=== PATIENT | female | born 1975 | race Asian ===

== ENCOUNTER 2024-10-27 13:28 | Emergency (ER) | payer SELFPAY ==
--- NOTE | ~2024-10-27 | XR_ITS ---
EXAM: XR abdomen/kub 1V DATE: 10/27/2024 14:21 HISTORY: pain, urinary frequency, bloating . COMPARISON: None available. FINDINGS: Lung bases are excluded from the [id number]. Normal bowel gas pattern. No organomegaly. No abnormal abdominal calcification. Mild lumbar scoliosis. Mild degenerative change in the bilatera l hips. IMPRESSION: No radiographic evidence of obstruction or ileus. Reviewed, dictated and finalized at location K.
[2024-10-27 13:48] VITALS: BP 143/78; PULSE 97; RESP 20; TEMP 37; O2SAT 98
--- NOTE | 2024-10-27 13:55 | ED_ITS ---
HPI - Female Genitourinary General Chief complaint: Urogenital-Female Stated complaint: UTI Time Seen by Provider: 10/27/24 13:56 Source: patient Mode of arrival: ambulatory Limitations: no limitations History of Present Illness HPI Narrative: 49 yo F presents with significant other with c/o constipation for 2 days. Today started to have urinary frequency, urgency, pain with sitting. Yesterday took 1 dose miralax and senna S. Has not had BM. No recent medication, food, travel changes to cause constipation. Feels bloated. All systems reviewed and negative except as noted above. Related Data Home Medications ?Medication ?Instructions ?Recorded ?Confirmed ?Last Taken ?Type No Home Medications 10/27/24 10/27/24 Unknown History Allergies Allergy/AdvReac Type Severity Reaction Status Date / Time No Known Allergies Allergy Verified 10/27/24 13:39 Review of Systems Review of Systems: CONSTITUTIONAL: Denies fever, chills, or sweats. EYES: Denies visual changes, redness, or discharge. ENT: Denies rhinorrhea, congestion, sore throat, or otalgia. CARDIOVASCULAR: Denies chest pain, palpitations, or edema. RESPIRATORY: Denies cough or dyspnea. GASTROINTESTINAL: Denies abdominal pain, constipation. Denies nausea, vomiting, or diarrhea. GENITOURINARY: Denies dysuria or hematuria. reports urinary frequency, urgency SKIN: Denies rash or itching. MUSCULOSKELETAL: Denies back pain, joint pain, or myalgia. NEUROLOGIC: Denies headache, numbness, or weakness. PSYCHIATRIC: Denies anxiety or depression. All other systems reviewed are negative, except as documented in HPI. PMFSH Comments At time of signature, agree with nursing past medical, surgical, social and family history. There is no relevant family history pertinent to the presenting complaint. Exam Narrative: GENERAL: This is a well-nourished, well-developed patient, in no apparent d istress. HEAD: normocephalic, atraumatic. EYES: PERRL. Sclera clear/white. Vision is grossly intact. EARS: External ears normal NOSE: External nose normal NECK: Neck supple, non-tender without lymphadenopathy, masses or thyromegaly. CARDIOVASCULAR: Regular rate and rhythm without murmurs, gallops, or rubs. RESPIRATORY: Clear to auscultation. Breath sounds equal bilaterally. No wheezes, rales, or rhonchi. GASTROINTESTINAL: Abdomen soft, non-tender, distended. Bowel sounds are active. No hepato-splenomegaly, or palpable masses. No guarding. SKIN: warm, Dry, intact with no suspicious lesions or rash, good texture and turgor. NEURO: awake, alert, and oriented to person, place and time. There were no obvious focal neurologic abnormalities. EXTREMITIES: No joint tenderness, effusion, or edema noted. Course Course Level of Care: Express Care Visit Vital Signs Vital signs: Vital Signs Temperature 37.0 C 10/27/24 13:48 Pulse Rate 97 10/27/24 13:48 Respiratory Rate 20 10/27/24 13:48 Blood Pressure 143/78 H 10/27/24 13:48 Pulse Oximetry 98 10/27/24 13:48 Oxygen Delivery Room Air 10/27/24 13:48 Temperature 37.0 C 10/27/24 13:48 Pulse Rate 97 10/27/24 13:48 Respiratory Rate 20 10/27/24 13:48 Blood Pressure 143/78 H 10/27/24 13:48 Pulse Oximetry 98 10/27/24 13:48 Oxygen Delivery Room Air 10/27/24 13:48 reviewed MDM - Female Genitourinary MDM Narrative Medical decision making narrative: urinalysis normal. Urine culture ordered. No obstruction on KUB. Discussed results with patient. Recommend increase MiraLax does, continue senna S as directed on packaging. Increase fiber, water and exercise. Go to the ER for any worsening of symptoms. Differential Diagnosis Differential diagnosis: Likely urinary tract infection and other ( Constipati on, bowel obstruction) Lab Data Labs: Lab Results 10/27/24 Range/Units 13:46 POC Urine Color Yellow POC Urine Clarity Clear POC Urine pH 7.0 POC Ur Specif [place] 1.020 POC Urine Protein Negative (Negative) POC Ur Glucose (UA) Negative (Negative) POC Urine Ketones Negative (Negative) POC Urine Blood Negative (Negative) POC Urine Nitrite Negative (Negative) POC Urine Bilirubin Negative (Negative) POC Urine Urobilinogen 0.2 POC U Leukocyte Esteras Negative (Negative) Imaging Data My impression: agree with radiologist Radiologist's impression: EXAM: XR abdomen/kub 1V DATE: 10/27/2024 14:21 HISTORY: pain, urinary frequency, bloating . COMPARISON: None available. FINDINGS: Lung bases are excluded from the [id number]. Normal bowel gas pattern. No organomegaly. No abnormal abdominal calcification. Mild lumbar scoliosis. Mild degenerative change in the bilateral hips. IMPRESSION: No radiographic evidence of obstruction or ileus. Discharge Plan Discharge Clinical Impression: Constipation Patient Disposition: Home Condition: Stable Instructions: Constipation (ED) Additional Instructions: The x-ray of your abdomen shows a large amount of stool. Increase miralax to twice a day. Take two tablets Senna-s twice a day. Drink at least 64 ounces of water a day. Increase fiber in diet. Apples are high in fiber. Exercise for at least 30 minutes a day. Your urine test was normal. A urine culture was ordered. If your urine culture is positive, we will call and prescribe an antibiotic but at this time you do not need one. Patient Language: Vietnamese Prescriptions: No Action No Home Medications Follow-up/Referrals: PHYSICIAN,BOTTLING LINE OPERATOR [Primary Care Provider] - Time of Disposition: 14:40
[2024-10-27 13:57] LABS: EDUAAPPEAR Clear; EDUABILI Negative (Negative); EDUABLOOD Negative (Negative); EDUACOLOR1 Yellow; EDUAGLUCOSE Negative (Negative); EDUAKETONE Negative (Negative); EDUALEUKO Negative (Negative); EDUANITRATE Negative (Negative); EDUAPH 7.0; EDUAPROTEIN Negative (Negative); EDUASPGRAVITY 1.020; EDUAUROBILI 0.2
== END 2024-10-27 14:45 | disposition home or self-care (01) ==
PROVIDERS: Emergency Provider Nurse Practitioner Family
DX: K59.00 Constipation, unspecified (principal)
CPT/HCPCS: 74018; 81003; 87086; 99203; G0463